=== PATIENT | female | born 2005 | race Asian ===

== ENCOUNTER 2024-03-05 20:13 | Emergency (ER) | payer OTHER ==
[~2024-03-05] VITALS: Ht 167.6 cm; Wt 68.0 kg
[2024-03-05 21:17] VITALS: BP_SYST 140; PULSE 89; RESP 18; TEMP 98.8; O2SAT 98
== END 2024-03-05 23:18 | disposition left against medical advice (07) ==
LOC: SED 20:13
DX: R11.10 Vomiting, unspecified (principal); R51.9 Headache, unspecified; Z53.21 Procedure and treatment not carried out due to patient leaving prior to being seen by health care provider
CPT/HCPCS: 99281